=== PATIENT | female | born 1995 | race Caucasian/White ===

== ENCOUNTER 2022-03-07 04:18 | Emergency (ER) | payer OTHER, SELFPAY ==
[2022-03-07 04:21] VITALS: BP 134/98; PULSE 86; O2SAT 98
[2022-03-07 04:40] VITALS: BP 141/85; PULSE 85; RESP 18; TEMP 36.8; O2SAT 98; BMI 32.3
[2022-03-07 04:43] LABS: Strep A Nucleic Acid Negative (Negative)
[2022-03-07 04:49] LABS: COVID-19 Test Negative (Negative); IDNOW Serial# 16C4AD1C; Influenza A Negative (Negative); Influenza B2 Negative (Negative)
--- NOTE | 2022-03-07 07:14 | ED_ITS ---
HPI - General Adult General Chief complaint: Upper Respiratory Symptoms Stated complaint: DIARRHEA X'S 5D ,CHILLS/FEVER/SORETHRT/VOMIT TODAY Time Seen by Provider: 03/07/22 07:14 Source: patient Mode of arrival: ambulatory History of Present Illness HPI narrative: Nausea and vomiting and diarrhea. Rhinorrhea and cough with diarrhea 5 days ago, vomiting started yesterday. No fever, but had chills Onset (ago): day(s) Severity: moderate Exacerbating factors: eating Associated symptoms: fever/chills and nausea/vomiting Related Data Previous Rx's Medication Instructions Recorded ondansetron 4 mg disintegrating 4 mg PO Q8H 4 days #12 tabs 03/07/22 tablet Allergies Allergy/AdvReac Type Severity Reaction Status Date / Time No Known Allergies Allergy Verified 03/07/22 04:41 Review of Systems Constitutional: Constitutional: Reports no additional constitutional complaints Eyes: Eyes: Reports no additional eye complaints ENT: Denies dizziness Cardiovascular: Cardiovascular: Reports no additional cardiovascular complaints Respiratory: Respiratory: Reports as per HPI Gastrointestinal: Gastrointestinal: Reports no additional gastrointestinal complaints Genitourinary: Genitourinary: Reports no additional female genitourinary complaints Musculoskeletal: Musculoskeletal: Reports no additional musculoskeletal complaints Integumentary/Breasts: Skin/Breast: Denies rash Neurologic: Reports system reviewed and no additional complaints, except as documented, Denies dizziness and Denies Sensory deficit (Neuro) Psychiatric: Psychiatric: Denies anxiety [facility] Social History Social History Advance Directives: No Physical Exam ED Vital Signs: Vital Signs - 24 hr 03/07/22 04:40 03/07/22 08:29 Temperature 98.3 F 98.2 F Pulse Rate 85 69 Respiratory Rate 18 16 Blood Pressure 141/85 H 129/81 Pulse Oximetry 98 99 Oxygen Delivery Method Room Air Room Air BMI result Body Mass Index 32.3 Const General: healthy appearing Nutritional Appearance: average body habitus Orientation/consciousness: oriented to person and patient oriented x3 Limitations: no limitations HENMT Head: Yes normal to inspection Ears: external ears normal General nose exam: Normal external nose present Mouth: Normal oral and palatal mucosa present and oropharynx normal Throat: Yes posterior oropharynx normal Eyes General: appearance normal, both eyes and all related structures Neck Neck: Yes normal visual inspection Chest Chest palpation & inspection: normal inspection of the chest Resp Auscultation: clear to auscultation bilaterally Cardio Jugular venous distension: no JVD Rate: regular rate Rhythm: regular rhythm Heart sounds: S1 normal heart sound present and S2 normal heart sound present GI Inspection: Yes normal to inspection Palpation (GI): Soft to palpation, nontender and No hepatosplenomegaly present Auscultation: normal bowel sounds General: Yes no CVA tenderness Back/Spine/Pelvis Back: no CVA tenderness Skin General skin exam: no rashes or lesions noted Neuro General: oriented to person and patient oriented x3 Cranial nerves: Yes CN's II-XII intact bilaterally Motor exam (neuro): 5/5 motor strength present throughout Sensory Exam: No Sensory deficit (Neuro) Extrem General: Yes normal to inspection Psych Appearance: grossly normal Course Reevaluation(s) Reevaluation #1: Patient feeling better will dc home on zofran Time: 09:28 Medical Decision Making Lab Data Result diagrams: 03/07/22 07:43 03/07/22 07:43 Labs: Lab Results 03/07/22 03/07/22 03/07/22 Range/Units 04:27 04:27 04:27 WBC (4.8-10.8) X10*3/uL RBC (4.20-5.50) X10*6/uL Hgb (12.0-16.0) g/dl Hct (37.0-47.0) % MCV (80.0-98.0) fL MCH (27.0-33.0) pg MCHC (31.0-35.0) g/dl RDW (11.0-16.0) % Plt Count (160-400) X10*3/uL MPV (9.4-12.3) fL Immature Gran % (Auto) (0.0-0.4) % Neut % (Auto) (45-73) % Lymph % (Auto) (20-40) % [place] % (Auto) (2-11) % Eos % (Auto) (0-4) % Baso % (Auto) (0-2) % Lymph # (Auto) (1.2-4.9) X10*3/uL [place] # (Auto) (0.1-1.2) X10*3/uL Eos # (Auto) (0.0-0.4) X10*3/uL Baso # (Auto) (0.0-0.2) X10*3/uL Abs Immat Gran (auto) (0.00-0.03) X10*3/uL Absolute Neuts (auto) (2.0-8.3) x10*3/uL Absolute Nucleated RBC (0.0-0.012) X10*3/uL Nucleated RBC % (auto) (0.0-0.2) /100WBC Sodium (135-145) mmol/L Potassium (3.3-5.1) mmol/L Chloride (96-108) mmol/L Carbon Dioxide (22-29) mmol/L Anion Gap (12-20) BUN (9-16) mg/dL Creatinine (0.5-1.4) mg/dL Estim Creat Clear Calc Estimated GFR Random Glucose (60-115) mg/dL Calcium (8.4-10.2) mg/dL Urine Color Urine Appearance Urine pH (5.0-8.0) Ur Specific [place] (1.005-1.025) Urine Protein (NEG-TRACE) MG/DL Urine Glucose (UA) (NEG) MG/DL Urine Ketones (NEG) MG/DL Urine Blood (NEG) Urine Nitrite (NEG) Ur Leukocyte Esterase (NEG) Urine RBC (0) /HPF Urine WBC (0-4) /HPF Ur Squamous Epith Cells /LPF Urine Bacteria /LPF Urine Mucus /LPF Urine Test (NEGATIVE) COVID-19 (ANITA) Negative (Negative) COVID-19 Clin Com See Note Influenza Type A (MAXIMO) Negative (Negative) Influenza Type B (MAXIMO) Negative (Negative) Influenza A & B Note See Note S. pyogenes GrpA MAXIMO Negative (Negative) 03/07/22 03/07/22 03/07/22 Range/Units 07:43 07:43 09:25 WBC 8.5 (4.8-10.8) X10*3/uL RBC 5.20 (4.20-5.50) X10*6/uL Hgb 13.4 (12.0-16.0) g/dl Hct 41.2 (37.0-47.0) % MCV 79.2 L (80.0-98.0) fL MCH 25.8 L (27.0-33.0) pg MCHC 32.5 (31.0-35.0) g/dl RDW 13.9 (11.0-16.0) % Plt Count 312 (160-400) X10*3/uL MPV 10.0 (9.4-12.3) fL Immature Gran % (Auto) 0.2 (0.0-0.4) % Neut % (Auto) 70.3 (45-73) % Lymph % (Auto) 18.6 L (20-40) % [place] % (Auto) 7.0 (2-11) % Eos % (Auto) 3.1 (0-4) % Baso % (Auto) 0.8 (0-2) % Lymph # (Auto) 1.6 (1.2-4.9) X10*3/uL [place] # (Auto) 0.6 (0.1-1.2) X10*3/uL Eos # (Auto) 0.3 (0.0-0.4) X10*3/uL Baso # (Auto) 0.1 (0.0-0.2) X10*3/uL Abs Immat Gran (auto) 0.02 (0.00-0.03) X10*3/uL Absolute Neuts (auto) 6.0 (2.0-8.3) x10*3/uL Absolute Nucleated RBC 0.000 (0.0-0.012) X10*3/uL Nucleated RBC % (auto) 0.0 (0.0-0.2) /100WBC Sodium 139 (135-145) mmol/L Potassium 4.4 (3.3-5.1) mmol/L Chloride 105 (96-108) mmol/L Carbon Dioxide 25 (22-29) mmol/L Anion Gap 13 (12-20) BUN 8 L (9-16) mg/dL Creatinine 0.83 (0.5-1.4) mg/dL Estim Creat Clear Calc 117.5 Estimated GFR > 60 Random Glucose 89 (60-115) mg/dL Calcium 10.1 (8.4-10.2) mg/dL Urine Color YELLOW Urine Appearance CLEAR Urine pH 6.0 (5.0-8.0) Ur Specific [place] 1.020 (1.005-1.025) Urine Protein NEG (NEG-TRACE) MG/DL Urine Glucose (UA) NEG (NEG) MG/DL Urine Ketones 5 (NEG) MG/DL Urine Blood 1+ H (NEG) Urine Nitrite NEG (NEG) Ur Leukocyte Esterase NEG (NEG) Urine RBC 0-2 (0) /HPF Urine WBC 0-2 (0-4) /HPF Ur Squamous Epith Cells 1+ /LPF Urine Bacteria TRACE /LPF Urine Mucus TRACE /LPF Urine Test (NEGATIVE) COVID-19 (ANITA) (Negative) COVID-19 Clin Com Influenza Type A (MAXIMO) (Negative) Influenza Type B (MAXIMO) (Negative) Influenza A & B Note S. pyogenes GrpA MAXIMO (Negative) 03/07/22 Range/Units 09:25 WBC (4.8-10.8) X10*3/uL RBC (4.20-5.50) X10*6/uL Hgb (12.0-16.0) g/dl Hct (37.0-47.0) % MCV (80.0-98.0) fL MCH (27.0-33.0) pg MCHC (31.0-35.0) g/dl RDW (11.0-16.0) % Plt Count (160-400) X10*3/uL MPV (9.4-12.3) fL Immature Gran % (Auto) (0.0-0.4) % Neut % (Auto) (45-73) % Lymph % (Auto) (20-40) % [place] % (Auto) (2-11) % Eos % (Auto) (0-4) % Baso % (Auto) (0-2) % Lymph # (Auto) (1.2-4.9) X10*3/uL [place] # (Auto) (0.1-1.2) X10*3/uL Eos # (Auto) (0.0-0.4) X10*3/uL Baso # (Auto) (0.0-0.2) X10*3/uL Abs Immat Gran (auto) (0.00-0.03) X10*3/uL Absolute Neuts (auto) (2.0-8.3) x10*3/uL Absolute Nucleated RBC (0.0-0.012) X10*3/uL Nucleated RBC % (auto) (0.0-0.2) /100WBC Sodium (135-145) mmol/L Potassium (3.3-5.1) mmol/L Chloride (96-108) mmol/L Carbon Dioxide (22-29) mmol/L Anion Gap (12-20) BUN (9-16) mg/dL Creatinine (0.5-1.4) mg/dL Estim Creat Clear Calc Estimated GFR Random Glucose (60-115) mg/dL Calcium (8.4-10.2) mg/dL Urine Color Urine Appearance Urine pH (5.0-8.0) Ur Specific [place] (1.005-1.025) Urine Protein (NEG-TRACE) MG/DL Urine Glucose (UA) (NEG) MG/DL Urine Ketones (NEG) MG/DL Urine Blood (NEG) Urine Nitrite (NEG) Ur Leukocyte Esterase (NEG) Urine RBC (0) /HPF Urine WBC (0-4) /HPF Ur Squamous Epith Cells /LPF Urine Bacteria /LPF Urine Mucus /LPF Urine Test NEGATIVE (NEGATIVE) COVID-19 (ANITA) (Negative) COVID-19 Clin Com Influenza Type A (MAXIMO) (Negative) Influenza Type B (MAXIMO) (Negative) Influenza A & B Note S. pyogenes GrpA MAXIMO (Negative) Discharge Plan Discharge Clinical Impression: Viral infection, Gastroenteritis Patient Disposition: Home, Self-Care Instructions: Acute Nausea and Vomiting (ED) Prescriptions: New ondansetron 4 mg tablet,disintegrating 4 mg PO Q8H 4 Days Qty: 12 0RF Referrals: Nancy López NP [Primary Care Provider] - 1 week Interventions: ED Discharge Assessment Last Done: 03/07/22 10:31 Discharge Date/Time: 03/07/22 10:31
[2022-03-07] MEDS: ondansetron HCL 4 MG/2 ML VIAL IVPUSH (07:44)
[2022-03-07] MEDS: 0.9 % Sodium Chloride 1,000 ML 999 ML IVCONT ×2 (07:45→09:21)
--- NOTE | 2022-03-07 07:45 | PC.NURSE ---
a/o x4. skin pink warm dry . IV placed Left AC . LABS sent .Normal Saline started as ordered . patient aware of need for urine sample . patient aware of plan of care .
[2022-03-07 07:48] LABS: MANUAL DIFF FLAG NO
[2022-03-07 07:49] LABS: Basophils Absolute Auto 0.1 X10*3/uL (0.0-0.2); Basophils Percent Auto 0.8 % (0-2); Eosinophils Absolute Auto 0.3 X10*3/uL (0.0-0.4); Eosinophils Percent Auto 3.1 % (0-4); Hematocrit 41.2 % (37.0-47.0); Hemoglobin 13.4 g/dl (12.0-16.0); Imm Gran Abs Auto 0.02 X10*3/uL (0.00-0.03); Imm Gran Pct Auto 0.2 % (0.0-0.4); Lymphocytes Absolute Auto 1.6 X10*3/uL (1.2-4.9); Lymphocytes Percent Auto 18.6 % (20-40); Mean Corpuscular HGB Conc 32.5 g/dl (31.0-35.0); Mean Corpuscular Hemoglobin 25.8 pg (27.0-33.0); Mean Corpuscular Volume 79.2 fL (80.0-98.0); Monocytes Absolute Auto 0.6 X10*3/uL (0.1-1.2); Neutrophils Percent Auto 70.3 % (45-73); Platelet Count 312 X10*3/uL (160-400); Red Cell Distribution Width 13.9 % (11.0-16.0); White Blood Count 8.5 X10*3/uL (4.8-10.8)
[2022-03-07 08:04] LABS: Anion Gap 13 (12-20); Blood Urea Nitrogen 8 mg/dL (9-16); Calcium 10.1 mg/dL (8.4-10.2); Carbon Dioxide 25 mmol/L (22-29); Chloride 105 mmol/L (96-108); Creatinine Clr Calc Pharmacy 117.5; Estimated Glomerular Filt Rate > 60; Glucose Random 89 mg/dL (60-115); Potassium 4.4 mmol/L (3.3-5.1); Sodium 139 mmol/L (135-145)
[2022-03-07 08:29] VITALS: BP 129/81; PULSE 69; RESP 16; TEMP 36.8; O2SAT 99
[2022-03-07 09:42] LABS: Appearance Urine CLEAR; Color Urine YELLOW; Glucose Urine UA NEG (NEG); Leukocyte Esterase Urine NEG (NEG); Nitrite Urine NEG (NEG); UACC Culture Trigger NO; Urine Blood 1+ (NEG); Urine Ketones 5 MG/DL (NEG); Urine Protein NEG (NEG-TRACE)
[2022-03-07 09:43] LABS: UPreg QC Valid YES; Urine Pregnancy NEGATIVE (NEGATIVE)
[2022-03-07 09:56] LABS: Squamous Epithelial Cell Urine 1+ /LPF
[2022-03-07 09:57] LABS: Bacteria Urine TRACE /LPF; Mucus Urine TRACE /LPF; RBC Urine 0-2 /HPF (0); WBC Urine 0-2 /HPF (0-4)
== END 2022-03-07 10:31 | disposition home or self-care (01) ==
PROVIDERS: Emergency Provider Emergency Medicine; PCP Nurse Practitioner Family
DX: B34.9 Viral infection, unspecified (principal); K52.9 Noninfective gastroenteritis and colitis, unspecified; M79.10 Myalgia, unspecified site; R50.9 Fever, unspecified; R11.2 Nausea with vomiting, unspecified; Z20.822 Contact with and (suspected) exposure to COVID-19; Z79.899 Other long term (current) drug therapy
CPT/HCPCS: 36415; 80048; 81001; 81025; 85025; 87502; 87635; 87651; 96361; 96374; 99284; J2405

== ENCOUNTER 2023-12-15 13:12 | Inpatient (IN) | payer OTHER, SELFPAY ==
[2023-12-15 13:34] VITALS: BP 140/96; PULSE 87; RESP 18; TEMP 37.2; O2SAT 97; BMI 34.9
[2023-12-15 13:37] VITALS: BP 140/96; PULSE 87; RESP 18; TEMP 37.2; O2SAT 97
[2023-12-15 13:42] LABS: Appearance Urine Cloudy; Color Urine Dark Yellow; Glucose Urine UA Negative (Negative); Leukocyte Esterase Urine Trace (Negative); Nitrite Urine Negative (Negative); PH 5.5 (5.0-9.0); UMIC TRIGGER UACC YES; Urine Blood Negative (Negative); Urine Ketones Trace mg/dL (Negative); Urine Protein Negative (Neg-Trace)
[2023-12-15 13:47] LABS: Bacteria Urine 1+ (None Seen); Hyaline Casts Urine 0-2 /LPF (0-2); RBC Urine 0-2 /HPF (0-2); WBC Urine 0-5 /HPF (0-5)
[2023-12-15 13:51] LABS: Amphetamine Screen Urine Not Detected (Not Detect); Barbiturates, Urine Not Detected (Not Detect); Benzodiazepines Screen Urine Not Detected (Not Detect); Buprenorphine Scr Not Detected (Not Detect); Cannabinoid Screen Urine POSITIVE (Not Detect); Cocaine Screen Urine Not Detected (Not Detect); Fentanyl, urine Not Detected (Not Detect); Methadone Screen, Urine Not Detected (Not Detect); Opiate Screen Urine Not Detected (Not Detect); Oxycodone Screen Urine Not Detected (Not Detect); Phencyclidine Screen Urine Not Detected (Not Detect)
[2023-12-15 14:07] LABS: MANUAL DIFF FLAG NO
[2023-12-15 14:12] LABS: Basophils Absolute Auto 0.1 X10*3/uL (0.0-0.2); Basophils Percent Auto 1.3 % (0-2); Eosinophils Absolute Auto 0.3 X10*3/uL (0.0-0.4); Eosinophils Percent Auto 3.7 % (0-4); Hematocrit 41.9 % (37.0-47.0); Hemoglobin 14.5 g/dl (12.0-16.0); Imm Gran Abs Auto 0.03 X10*3/uL (0.00-0.03); Imm Gran Pct Auto 0.4 % (0.0-0.4); Lymphocytes Absolute Auto 1.6 X10*3/uL (1.2-4.9); Lymphocytes Percent Auto 20.8 % (20-40); Mean Corpuscular HGB Conc 34.6 g/dl (31.0-35.0); Mean Corpuscular Hemoglobin 29.2 pg (27.0-33.0); Mean Corpuscular Volume 84.5 fL (80.0-98.0); Mean Platelet Volume 9.7 fL (9.4-12.3); Monocytes Absolute Auto 0.5 X10*3/uL (0.1-1.2); Monocytes Percent Auto 6.3 % (2-11); Neutrophils Absolute Auto 5.3 x10*3/uL (2.0-8.3); Neutrophils Percent Auto 67.5 % (45-73); Platelet Count 291 X10*3/uL (160-400); Red Blood Count 4.96 X10*6/uL (4.20-5.50); Red Cell Distribution Width 13.1 % (11.0-16.0); White Blood Count 7.9 X10*3/uL (4.8-10.8)
--- NOTE | 2023-12-15 14:12 | PC.NURSE ---
patient presents to the ED after CHD evaulation. Patient reports SI thoughts with a plan to overdose on her medications. Patient is very calm/cooperative and pleasant with changeover/ blood draw. Patient is now resting on bed with at bedside. Patient has 3 books from home as well as her contact case on bedside table. Patient is on Section 12 per CARE team and plan is for inpatient bedsearch
[2023-12-15 14:24] LABS: COVID-19 Test Negative (Negative); IDNOW Serial# 152EDE1D
--- NOTE | 2023-12-15 14:25 | ED_ITS ---
HPI - Psych General Chief Complaint: Psychiatric Symptoms Stated Complaint: SI Time Seen by Provider: 12/15/23 13:58 Source: patient, RN notes reviewed and old records reviewed Mode of arrival: ambulatory Limitations: no limitations History of Present Illness HPI Narrative: 28 year old female with pmhx significant for bipolar with depression presents to the ED today on Section 12 for evaluation of suicidal ideations with plan to overdose. Admits SI is related to environmental stressors. Denies HI. Denies AH/VH/TH. Denies any physical complaints at present. Denies etoh consumption. Denies illicit substance use. Related Data Allergies Allergy/AdvReac Type Severity Reaction Status Date / Time No Known Allergies Allergy Unverified 12/15/23 13:36 Review of Systems 2 Review of Systems: Constitutional: No fever, chills, fatigue, night sweats, weight changes ENT/Mouth: No ear pain, hearing loss, nasal congestion, sinus pain, rhinorrhea, sore throat Eyes: No eye pain, swelling, redness, vision changes, discharge Cardio: No chest pain, palpitations, HAILE, orthopnea, peripheral edema Pulm: No SOB, cough, sputum, wheezing, dyspnea, hemoptysis GI: No nausea, vomiting, hematemesis, abdominal pain, diarrhea, constipation, hematochezia, melena : No irregular bleeding, dysuria, frequency, urgency, hesitancy, hematuria, flank pain, urinary flow changes, urinary incontinence or retention MSK: No back pain, neck pain, joint pain, myalgias Skin: No lesions, rashes Neuro: No weakness, numbness, paresthesias, LOC, dizziness, headache Psych: No anxiety/panic, depression, SI/HI, AH/VH All other systems reviewed and are negative. [facility] Past Medical History Attestation statement: The following information was validated with the patient. Source: old records reviewed and nursing notes reviewed Social History Social History Alcohol intake: former Smoked in Last 30 Days: No Use of substances other than those prescribed or required for medical reasons: Yes Substance Use Type: Marijuana Substance Use Frequency: Daily Last Used Substance: Unknown Any prior treatment program specific to substance use: No Advance Directives: No Advance Directives Information Provided: Yes Patient : No Physical Exam 2 Vital Signs: Vital Signs: Last Vital Signs Temp 99.0 F 04/20/24 13:37 Pulse 87 12/15/23 13:37 Resp 18 12/15/23 13:37 BP 140/96 H 12/15/23 13:37 Pulse Ox 97 12/15/23 13:37 O2 Del Method Room Air 12/15/23 13:37 BMI result Body Mass Index 34.9 Patient hypertensive, vitals otherwise WNL. Low-grade temp of 99?. Const: General: cooperative, healthy appearing, comfortable and no acute distress Orientation/consciousness: patient oriented x3 Limitations: no limitations HEENT: Head: Yes normal to inspection, Yes No palpable skull fracture present, Yes normocephalic and Yes atraumatic Eyes: General: appearance normal, both eyes and all related structures C onjunctivae: conjunctivae normal Sclerae: sclerae normal Pupils: Equal, round and reactive pupils present Neck: Neck: Yes normal visual inspection, Yes full ROM and Yes no lymphadenopathy Resp: Effort & Inspection: normal respiratory effort and able to speak in complete sentences Auscultation: clear to auscultation bilaterally Cardio: Rate: regular rate Rhythm: regular rhythm GI: Inspection: Yes normal to inspection Palpation (GI): Soft to palpation and nontender : General: Yes no CVA tenderness Back/Spine/Pelvis: Back: no CVA tenderness Skin: General skin exam: no rashes or lesions noted Neuro: General: patient oriented x3 and gait normal Cranial nerves: Yes CN's II-XII intact bilaterally and Yes Equal, round and reactive pupils present Extrem: General: Yes normal to inspection Course Course Course Narrative: 1437-- CBC without leukocytosis or left shift. No anemia. H&H stable. Chemistry without acute electrolyte abnormality requiring intervention. Random glucose elevated to 148. Transaminitis with ALT 59. Urine with trace leuks, 6- 10 squamous epithelial cells, 1+ bacteria > likely contamination. No concern for urinary tract infection. Will wait for culture. Urine drug screen positive for marijuana, otherwise undetectable. COVID negative. > physician observation initiated pending care team consultation and disposition. Medical Decision Making Medical Decision Making [facility] Narrative: 28 year old female with pmhx significant for bipolar with depression presents to the ED today for evaluations of suicidal ideations with plan to overdose. Patient hypertensive, vitals otherwise WNL. She is nontoxic-appearing and in no acute distress. RRR. Lungs are CTA bilaterally. Abdomen is soft, nondistended, nontender to palpation. No rebound tenderness or guarding. Normoactive bowel sounds x4. Skin warm/dry/intact. No rashes or skin lesions. Differential diagnosis includes suicidal ideation, bipolar disorder, depression, isaac, polysubstance use, ETOH consumption, UTI, anemia, electrolyte abnormality Plan for labs, urine, urine preg, urine drug screen, medical clearance for care team consultation. Differential Diagnosis Differential Diagnoses: The differential diagnosis associated with the presentation includes As above Admission/Observation Consideration of admission/observation: Escalation of care including admission/observation considered Lab Data MDM Lab Attestation statement: I reviewed the patient's lab results. As above 12/15/23 13:51 12/15/23 13:51 Labs: Lab Results 12/15/23 12/15/23 Range/Units 13:32 13:51 WBC 7.9 (4.8-10.8) X10*3/uL RBC 4.96 (4.20-5.50) X10*6/uL Hgb 14.5 (12.0-16.0) g/dl Hct 41.9 (37.0-47.0) % MCV 84.5 (80.0-98.0) fL MCH 29.2 (27.0-33.0) pg MCHC 34.6 (31.0-35.0) g/dl RDW 13.1 (11.0-16.0) % Plt Count 291 (160-400) X10*3/uL MPV 9.7 (9.4-12.3) fL Immature Gran % (Auto) 0.4 (0.0-0.4) % Neut % (Auto) 67.5 (45-73) % Lymph % (Auto) 20.8 (20-40) % [place] % (Auto) 6.3 (2-11) % Eos % (Auto) 3.7 (0-4) % Baso % (Auto) 1.3 (0-2) % Lymph # (Auto) 1.6 (1.2-4.9) X10*3/uL [place] # (Auto) 0.5 (0.1-1.2) X10*3/uL Eos # (Auto) 0.3 (0.0-0.4) X10*3/uL Baso # (Auto) 0.1 (0.0-0.2) X10*3/uL Abs Immat Gran (auto) 0.03 (0.00-0.03) X10*3/uL Absolute Neuts (auto) 5.3 (2.0-8.3) x10*3/uL Absolute Nucleated RBC 0.000 (0.0-0.012) X10*3/uL Nucleated RBC % (auto) 0.0 (0.0-0.2) /100WBC Sodium 139 (135-145) mmol/L Potassium 4.0 (3.3-5.1) mmol/L Chloride 106 (96-108) mmol/L Carbon Dioxide 25 (22-29) mmol/L Anion Gap 12 (12-20) BUN 10 (9-16) mg/dL Creatinine 0.86 (0.5-1.4) mg/dL Estim Creat Clear Calc 112.1 Estimated GFR > 60 Random Glucose 148 H (60-115) mg/dL Calcium 9.9 (8.4-10.2) mg/dL Total Bilirubin 0.4 (0.0-1.0) mg/dL AST 30 (5-31) U/L ALT 59 H (0-31) U/L Alkaline Phosphatase 81 (39-117) U/L Total Protein 7.7 (6.5-8.0) g/dL Albumin 4.6 (3.5-5.0) g/dL Urine Color Dark Yellow Urine Appearance Cloudy Urine pH 5.5 (5.0-9.0) Ur Specific [place] 1.020 (1.005-1.025) Urine Protein Negative (Neg-Trace) mg/dL Urine Glucose (UA) Negative (Negative) mg/dL Urine Ketones Trace (Negative) mg/dL Urine Blood Negative (Negative) Urine Nitrite Negative (Negative) Ur Leukocyte Esterase Trace H (Negative) Urine RBC 0-2 (0-2) /HPF Urine WBC 0-5 (0-5) /HPF Ur Squamous Epith Cells 6-10 (0-2) /HPF Urine Bacteria 1+ (None Seen) Hyaline Casts 0-2 (0-2) /LPF Urine Test NEGATIVE (NEGATIVE) Urine Opiates Screen Not Detected (Not Detect) Ur Buprenorphine Scrn Not Detected (Not Detect) ng/mL Ur Oxycodone Screen Not Detected (Not Detect) ng/mL Urine Methadone Screen Not Detected (Not Detect) ng/mL Urine Fentanyl Screen Not Detected (Not Detect) Ur Barbiturates Screen Not Detected (Not Detect) Ur Phencyclidine Scrn Not Detected (Not Detect) Ur Amphetamines Screen Not Detected (Not Detect) U Benzodiazepines Scrn Not Detected (Not Detect) Urine Cocaine Screen Not Detected (Not Detect) U Marijuana (THC) Screen POSITIVE H (Not Detect) Ethyl Alcohol < 10 mg/dL COVID-19 (ANITA) Negative (Negative) COVID-19 Clin Com See Note Chronic Conditions Patient?s care impacted by: Other (Bipolar disorder) Social Determinants Patient?s care significantly limited by Social Determinants of Health including: Other Social Determinant of Health Critical Care Time Critical Care Time Critical Care Time: No Discharge Plan Discharge Clinical Impression: Suicidal ideation, Bipolar disorder, Depression Patient Disposition: Still a Patient Interventions: Emanuel-Suicide Risk Severity Scale Last Done: 12/15/23 13:39 Print Language: Omani
[2023-12-15 14:33] LABS: Alanine Aminotransferase 59 U/L (0-31); Albumin Level 4.6 g/dL (3.5-5.0); Alkaline Phosphatase 81 U/L (39-117); Anion Gap 12 (12-20); Aspartate Amino Transferase 30 U/L (5-31); Bilirubin Total 0.4 mg/dL (0.0-1.0); Blood Urea Nitrogen 10 mg/dL (9-16); Calcium 9.9 mg/dL (8.4-10.2); Carbon Dioxide 25 mmol/L (22-29); Chloride 106 mmol/L (96-108); Creatinine Clr Calc Pharmacy 112.1; Estimated Glomerular Filt Rate > 60; Ethanol < 10 mg/dL; Glucose Random 148 mg/dL (60-115); Sodium 139 mmol/L (135-145); Total Protein 7.7 g/dL (6.5-8.0)
[2023-12-15 14:59] LABS: UPreg QC Valid YES; Urine Pregnancy NEGATIVE (NEGATIVE)
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
--- NOTE | 2023-12-15 23:56 | PC.NURSE ---
Assumed care of pt at 2300. PT currently laying in bed, eyes closed and appears to be sleeping. Plan of care on going.
--- NOTE | 2023-12-16 05:34 | PC.NURSE ---
PT appeared to sleep throughout the night, no behavioral concerns as of this time. Plan of care onging.
[2023-12-16 06:33] VITALS: BP 134/83; PULSE 84; RESP 16; TEMP 36.4; O2SAT 96
--- NOTE | 2023-12-16 07:39 | PC.NURSE ---
Assumed care of patient at 0645, patient resting upright in bed, reading a book, offering no complaints to this RN. Respirations even and unlabored, no apparent distress noted. Continue plan of care for CARE team re-eval in am
--- NOTE | 2023-12-16 11:39 | MHC.CARE ---
Rome Gould at [facility] auth number is [id number] 1 day auth with [facility] UR team following up tomorrow to review auth for addtl days
--- NOTE | 2023-12-16 13:00 | MHC.CARE ---
Rome Gould at [facility] Authorization for 5 full days [id number] LCD 12/19. For additional auth: Leah @ [phone]
[2023-12-16 13:05] VITALS: BP 133/93; PULSE 89; RESP 18; TEMP 36.4; O2SAT 99
[2023-12-16 15:00] VITALS: BMI 35.9
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
[2023-12-16 20:40] VITALS: BP 127/72; PULSE 99; RESP 18; TEMP 36.4; O2SAT 99
[2023-12-16] MEDS: traZODone HCL 50 MG TABLET PO (22:35)
[2023-12-17 08:00] VITALS: BP 134/72; PULSE 98; RESP 18; TEMP 36.8; O2SAT 99
[2023-12-17 08:31] LABS: Estimated Average Glucose 108 mg/dL; Hemoglobin A1c % 5.4 % (<6.0)
[2023-12-17 08:47] LABS: Cholesterol 126 mg/dL (<200); HDL Cholesterol 37 mg/dL (>40); LDL Cholesterol Calculated 66 mg/dL (<100); Triglycerides 118 mg/dL (<150)
[2023-12-17] MEDS: FLUoxetine HCl 10 MG CAPSULE PO (13:29)
[2023-12-17 20:00] VITALS: BP 148/84; PULSE 91; RESP 18; TEMP 36.6; O2SAT 97
[2023-12-17] MEDS: cloNIDine HCL 0.1 MG TABLET PO (21:02)
[2023-12-18 08:00] VITALS: BP 130/68; PULSE 81; RESP 18; TEMP 37.3; O2SAT 99
[2023-12-18] MEDS: FLUoxetine HCl 10 MG CAPSULE PO (08:34)
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
[2023-12-18] MEDS: hydrOXYzine HCL 50 MG TABLET PO (18:26)
[2023-12-18 18:33] VITALS: BP 135/97; PULSE 86
[2023-12-18 19:40] VITALS: BP 152/82; PULSE 81; RESP 18; TEMP 36.3; O2SAT 99
[2023-12-18] MEDS: cloNIDine HCL 0.1 MG TABLET PO (21:10)
[2023-12-18] MEDS: lamoTRIgine 25 MG TABLET PO (21:10)
[2023-12-18 21:11] VITALS: BP 137/80; PULSE 89
[2023-12-19] MEDS: FLUoxetine HCl 20 MG CAPSULE PO (07:58)
[2023-12-19 08:00] VITALS: BP 124/67; PULSE 95; RESP 18; TEMP 36.3; O2SAT 98
[2023-12-19 20:00] VITALS: BP 145/82; PULSE 90; RESP 18; TEMP 36.9; O2SAT 97
[2023-12-19 21:24] VITALS: BP 145/82
[2023-12-19] MEDS: cloNIDine HCL 0.1 MG TABLET PO (21:24)
[2023-12-19] MEDS: lamoTRIgine 25 MG TABLET PO (21:25)
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
[2023-12-20 07:45] VITALS: BP 148/70; PULSE 73; RESP 16; TEMP 36.6; O2SAT 95
[2023-12-20] MEDS: FLUoxetine HCl 20 MG CAPSULE PO (08:21)
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
[2023-12-20] MEDS: cloNIDine HCL 0.1 MG TABLET PO (20:23)
[2023-12-20] MEDS: lamoTRIgine 25 MG TABLET PO (20:45)
[2023-12-20] MEDS: traZODone HCL 50 MG TABLET PO (22:34)
[2023-12-21 08:00] VITALS: BP 120/74; PULSE 103; RESP 16; TEMP 36.4; O2SAT 99
[2023-12-21] MEDS: FLUoxetine HCl 20 MG CAPSULE PO (08:22)
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
== END 2023-12-21 11:55 | disposition home or self-care (01) | DRG 885 ==
LOC: HO.ED 16:10 → HO.PM5 12-16 12:21
PROVIDERS: Admitting Provider Psychiatry & Neurology Psychiatry; Emergency Provider Emergency Medicine; Visit Provider Psychiatry & Neurology Psychiatry
DX: F33.2 Major depressive disorder, recurrent severe without psychotic features (principal); R45.851 Suicidal ideations; F43.10 Post-traumatic stress disorder, unspecified; F10.21 Alcohol dependence, in remission; Z20.822 Contact with and (suspected) exposure to COVID-19; Z87.891 Personal history of nicotine dependence; Z79.899 Other long term (current) drug therapy
CPT/HCPCS: 36415; 80053; 80061; 80307; 81001; 81025; 83036; 85025; 87635; 99285

== ENCOUNTER → 2023-12-16 12:14 | Outpatient (BNV) | payer OTHER, SELFPAY | PROVIDERS: Admitting Provider Psychiatry & Neurology Psychiatry; Emergency Provider Emergency Medicine; Visit Provider Psychiatry & Neurology Psychiatry | DX: F33.2 Major depressive disorder, recurrent severe without psychotic features (principal); F43.11 Post-traumatic stress disorder, acute | CPT/HCPCS: 90792; 99231; 99232; 99238; 99499 ==